=== PATIENT | female | born 1950 | race Two or more races ===

== ENCOUNTER → 2018-10-21 | Outpatient (CLI) | payer OTHER, MEDICARE ==
--- NOTE | 2018-10-21 15:45 | RAD ---
DATE: 10/21/2018 EXAM: MAMMO TEO SCREENING BILATERAL HISTORY: Routine screening. COMPARISON: None. This is the baseline. This study was interpreted with the benefit of Computerized Aided Detection (CAD). Breast Density: HETERO The breast parenchyma is heterogenously dense, which could reduce sensitivity of mammography. Breast parenchyma level C. FINDINGS: MLO and CC images of each breast were obtained. Tomosynthesis was performed. Possibly of distortion involving the left upper breast anteriorly on the MLO tomosynthesis images. No masses. No suspicious calcifications. Benign calcification is present. IMPRESSION: Distortion is questioned involving the left upper breast. Spot compression imaging of the left upper MLO projection with tomosynthesis is recommended. Ultrasound may be needed. Annual right screening mammography recommended. BI-RADS CATEGORY: 0 INCOMPLETE: NEEDS ADDITIONAL IMAGING EVALUATION AND/OR PRIOR MAMMOGRAMS FOR COMPARISON. RECOMMENDED FOLLOW-UP: ADD ADDITIONAL IMAGING PQRS compliance statement: Patient information was entered into a reminder system with a target due date now for additional imaging of the left breast for the next mammogram. Mammography is a sensitive method for finding small breast cancers, but it does not detect them all and is not a substitute for careful clinical examination. A negative mammogram does not negate a clinically suspicious finding and should not result in delay in biopsying a clinically suspicious abnormality. "Our facility is accredited by the [employer] Mammography Program."
== END | disposition home or self-care (01) ==
LOC: MAMMO 13:40
PROVIDERS: ATTEND Family Medicine
DX: Z12.31 Encounter for screening mammogram for malignant neoplasm of breast (principal)
CPT/HCPCS: 77063; 77067